=== PATIENT | male | born 1965 | race Two or more races ===

== ENCOUNTER 2020-11-18 12:32 | Emergency (ER) | payer OTHER ==
[2020-11-18 12:40] VITALS: BP 172/98; PULSE 115; TEMP 97.9; BMI 32.1
[2020-11-18] MEDS ORDERED: DEXAMETHASONE LIQUID 0.5 MG/5 ML PO ONE (13:22)
[2020-11-18] MEDS ORDERED: FAMOTIDINE 20 MG TABLET PO ONE (13:26)
[2020-11-18] MEDS ORDERED: DEXAMETHASONE SOD PHOSPHATE 10 MG/1 ML VIAL IM ONE (13:26)
[2020-11-18] MEDS ORDERED: DEXAMETHASONE SOD PHOSPHATE 10 MG/1 ML VIAL ONE (13:30)
[2020-11-18] MEDS ORDERED: FAMOTIDINE 20 MG TABLET ONE ×2 (13:30→13:31)
[2020-11-18] MEDS ORDERED: LOSARTAN POTASSIUM 50 MG TABLET PO ONE (13:41)
[2020-11-18] MEDS ORDERED: LOSARTAN POTASSIUM 50 MG TABLET ONE (13:47)
== END 2020-11-18 13:55 | disposition home or self-care (01) ==
LOC: JERFT 12:32
PROC: 3E033NZ Introduction of Analgesics, Hypnotics, Sedatives into Peripheral Vein, Percutaneous Approach (ICD-10-PCS; principal; 2020-11-18)
DX: L50.9 Urticaria, unspecified (principal); I10 Essential (primary) hypertension
CPT/HCPCS: 99284-25; J1100

== ENCOUNTER 2020-12-27 11:34 | Emergency (ER) | payer OTHER ==
[2020-12-27 11:53] VITALS: BP 122/79; PULSE 90; TEMP 98.1; BMI 32.8
[2020-12-27 13:56] LABS: BASO % 0.3 % (0-2.0); EOS % 0.3 % (0-4.5); HEMATOCRIT 44.9 % (35.4-49); HEMOGLOBIN 15.7 GM/dL (11.7-16.9); MCH 32.6 pg (25.7-33.7); MEAN CELL VOLUME 93.2 fl (80-96); MEAN PLT VOLUME 9.5 fl (7.5-11.1); MONO % 12.7 % (3.8-10.2); NEUT % 67.7 % (42.8-82.8); PLATELET COUNT 176 K/MM3 (134-434); RBC 4.81 M/mm3 (4.00-5.60); RDW 12.5 % (11.9-15.9); WHITE BLOOD COUNT 7.5 K/mm3 (4.0-10.0)
[2020-12-27 13:59] LABS: CHLORIDE 104 mmol/L (98-107); POTASSIUM 4.1 mmol/L (3.5-5.1); SODIUM 139 mmol/L (136-145)
[2020-12-27 14:01] LABS: CALCIUM 9.7 mg/dL (8.5-10.1)
[2020-12-27 14:02] LABS: ALBUMIN 3.7 g/dl (3.4-5.0); ANION GAP 6 MMOL/L (8-16); BLOOD UREA NITROGEN 4.7 mg/dL (7-18); CO2 29 mmol/L (21-32); GLUCOSE,RANDOM 114 mg/dL (74-106)
[2020-12-27 14:05] LABS: CREATININE 0.9 mg/dL (0.55-1.3); SGOT/AST 41 U/L (15-37); SGPT/ALT 36 U/L (13-61)
[2020-12-27 14:06] LABS: TOT PROT 7.9 g/dl (6.4-8.2)
[2020-12-27 14:07] LABS: ALK PHOS 69 U/L (45-117)
[2020-12-27 14:11] LABS: BILIRUBIN,TOTAL 0.4 mg/dL (0.2-1)
== END 2020-12-27 15:17 | disposition home or self-care (01) ==
LOC: JER 11:34
DX: U07.1 COVID-19 (principal); R07.9 Chest pain, unspecified
CPT/HCPCS: 36415; 71046-TC-FY; 80053; 82550; 82553; 84484; 85025; 93005; 93010; 99285-25

== ENCOUNTER 2023-01-21 05:03 | Emergency (ER) | payer OTHER ==
[2023-01-21 05:10] VITALS: BP 150/106; RESP 20; TEMP 98.5; BMI 32.1
[2023-01-21] MEDS ORDERED: KETOROLAC TROMETHAMINE 30 MG/1 ML VIAL IM ONE (05:30)
[2023-01-21] MEDS ORDERED: diazePAM 5 MG TABLET PO ONE (05:30)
[2023-01-21] MEDS ORDERED: ACETAMINOPHEN 500 MG TABLET (FP) PO ONE (05:31)
[2023-01-21] MEDS ORDERED: LIDOCAINE 5% TOPICAL PATCH TP ONE (05:31)
[2023-01-21] MEDS ORDERED: ACETAMINOPHEN 325 MG TABLET (FP) ONE (05:39)
[2023-01-21] MEDS ORDERED: diazePAM 5 MG TABLET ONE (05:39)
[2023-01-21] MEDS ORDERED: KETOROLAC TROMETHAMINE 30 MG/1 ML VIAL ONE (05:40)
[2023-01-21] MEDS ORDERED: LIDOCAINE 5% TOPICAL PATCH ONE (05:40)
[2023-01-21 07:16] VITALS: PULSE 96
[2023-01-21] MEDS ORDERED: LIDOCAINE PATCH REMOVAL MC SCH (22:00)
== END 2023-01-21 07:05 | disposition home or self-care (01) ==
LOC: JER 05:03
PROC: 3E0233Z Introduction of Anti-inflammatory into Muscle, Percutaneous Approach (ICD-10-PCS; principal; 2023-01-21)
DX: M54.50 Low back pain, unspecified (principal)
CPT/HCPCS: 99284-25

== ENCOUNTER 2024-05-28 04:48 | Emergency (ER) | payer OTHER ==
[2024-05-28 04:52] VITALS: BP 149/93; PULSE 97; RESP 18; TEMP 98.3; BMI 35.5
[2024-05-28] MEDS ORDERED: LIDOCAINE 4% PATCH TP ONE (05:31)
[2024-05-28] MEDS ORDERED: ACETAMINOPHEN 325 MG TABLET (FP) ONE (05:31)
[2024-05-28] MEDS: LIDOCAINE 4% PATCH TP ONE (05:36)
[2024-05-28] MEDS: ACETAMINOPHEN 325 MG TABLET (FP) PO ONE (05:37)
[2024-05-28] MEDS ORDERED: METHOCARBAMOL 500 MG TABLET ONE (06:44)
[2024-05-28] MEDS ORDERED: KETOROLAC TROMETHAMINE 30 MG/1 ML VIAL ONE (06:45)
[2024-05-28] MEDS: METHOCARBAMOL 500 MG TABLET PO ONE (06:50)
[2024-05-28] MEDS: KETOROLAC TROMETHAMINE 30 MG/1 ML VIAL IM ONE (06:50)
[2024-05-28] MEDS ORDERED: LIDOCAINE PATCH REMOVAL MC SCH (22:00)
== END 2024-05-28 09:10 | disposition home or self-care (01) ==
LOC: JER 04:48
PROC: 3E0133Z Introduction of Anti-inflammatory into Subcutaneous Tissue, Percutaneous Approach (ICD-10-PCS; principal; 2024-05-28)
DX: M54.50 Low back pain, unspecified (principal); G89.29 Other chronic pain; R00.0 Tachycardia, unspecified; Y93.01 Activity, walking, marching and hiking
CPT/HCPCS: 96372; 99284-25

== ENCOUNTER 2024-08-01 16:19 | Emergency (ER) | payer OTHER ==
[2024-08-01 16:26] VITALS: BP 119/85; PULSE 88; RESP 18; TEMP 98.4; BMI 33.7
[2024-08-01 18:08] LABS: BASO % 0.8 % (0-2.0); EOS % 1.9 % (0-4.5); HEMATOCRIT 49.2 % (35.4-49); HEMOGLOBIN 17.3 GM/dL (11.7-16.9); LYMPH % 39.2 % (8-40); MCH 32.5 pg (25.7-33.7); MCHC 35.1 g/dl (32.0-35.9); MEAN CELL VOLUME 92.4 fl (80-96); MEAN PLT VOLUME 8.8 fl (7.5-11.1); MONO % 9.2 % (3.8-10.2); NEUT % 48.9 % (42.8-82.8); PLATELET COUNT 210 10^3/uL (134-434); RBC 5.33 M/mm3 (4.00-5.60); RDW 12.7 % (11.9-15.9)
[2024-08-01 18:16] LABS: POTASSIUM 3.3 mmol/L (3.5-5.1)
[2024-08-01 18:20] LABS: ALBUMIN 3.9 g/dl (3.4-5.0); BLOOD UREA NITROGEN 13.6 mg/dL (7-18); CALCIUM 9.3 mg/dL (8.5-10.1)
[2024-08-01 18:22] LABS: CREATININE 1.5 mg/dL (0.55-1.3)
[2024-08-01 18:25] LABS: BILIRUBIN,TOTAL 0.6 mg/dL (0.2-1); TOT PROT 7.8 g/dl (6.4-8.2)
[2024-08-01] MEDS: LACTATED RINGERS SOLUTION 1000 ML INFUS.BAG IV ONE (19:09)
[2024-08-01 19:36] LABS: HIV INTERPRETATION NEGATIVE (NEGATIVE)
[2024-08-01 19:56] LABS: URINE APPEARANCE CLEAR; URINE BILIRUBIN 1+ (NEGATIVE); URINE COLOR DK YELLOW; URINE GLUCOSE (UA) NEGATIVE (NEGATIVE); URINE KETONE TRACE (NEGATIVE); URINE LEUK ESTERASE NEGATIVE (NEGATIVE); URINE NITRITE NEGATIVE (NEGATIVE); URINE PROTEIN TRACE (NEGATIVE)
[2024-08-01] MEDS ORDERED: POTASSIUM CHLORIDE ORAL LIQUID 20 MEQ/15 ML ONE (20:24)
[2024-08-01] MEDS: POTASSIUM CHLORIDE ORAL LIQUID 20 MEQ/15 ML PO ONE (20:48)
[2024-08-01 21:18] LABS: POTASSIUM 3.6 mmol/L (3.5-5.1)
[2024-08-01 21:19] LABS: BLOOD UREA NITROGEN 12.1 mg/dL (7-18); CALCIUM 9.9 mg/dL (8.5-10.1)
[2024-08-01 21:22] LABS: CREATININE 1.2 mg/dL (0.55-1.3)
== END 2024-08-01 22:17 | disposition home or self-care (01) ==
LOC: JER 16:19
DX: R10.11 Right upper quadrant pain (principal); G89.29 Other chronic pain; N17.9 Acute kidney failure, unspecified
CPT/HCPCS: 36415; 71046-TC-FY; 74177-TC; 80048; 80053; 81003; 83690; 84484; 85025; 86803; 87086; 87389; 93005; 93010; 99285-25; Q9967